=== PATIENT | female | born 1950 | race Caucasian/White ===

== ENCOUNTER → 2019-03-13 | Outpatient (CLI) | payer BC, MEDICARE ==
--- NOTE | 2019-03-13 11:06 | KCIC ---
MRI study of the left knee without contrast Clinical indications: Chronic medial left knee pain and joint effusion. TECHNIQUE: Noncontrast MRI sequences of the left knee were performed in all 3 planes. COMPARISON: None available. FINDINGS: The anterior and posterior cruciate ligaments are intact. The quadriceps and patellar tendons are intact. Prepatellar tendon soft tissue edema is seen. There is mild lateral subluxation of the patella. The trochlear groove to tibial tubercle distance is 12 mm which is normal. There is mild chondromalacia patellae of the lateral patellar facet without articular cartilage defect. The trochlear articular cartilage is unremarkable. Nonthickened medial plica is seen. The medial and lateral retinacular ligaments are intact. There is a small tear of the posterior body of the medial meniscus which extends to the inferior articular surface. There is mild truncation of the inner articular edge of this portion of the medial meniscus. The lateral meniscus is intact. The medial collateral ligament is intact and no meniscocapsular separation is seen. The lateral collateral ligament complex and iliotibial band and popliteus tendon are intact. No posterior lateral corner injury is seen. No bone contusion or fracture or marrow infiltrative process is seen. There is moderate chondromalacia and thinning of the articular cartilage of the medial tibiofemoral joint compartment mainly involving the medial femoral condyle. There is mild degenerative stress reaction bone marrow edema of the medial tibial plateau. Minimal degenerative spurring of this joint compartment is seen. No focal osteochondral abnormality of the lateral tibiofemoral joint compartment is seen. A moderate-sized knee joint effusion is seen. No loose body is evident. No muscle edema is seen. No distended Sesay's cyst is seen. 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 Small tear of the body of the medial meniscus. Moderate-sized knee joint effusion. Prepatellar tendon soft tissue edema. The patellar tendon is intact without significant tendinosis. There is mild lateral subluxation of the patella. This could be related to the moderate-sized knee joint effusion. There is mild chondromalacia patellae of the lateral patellar facet. Nonthickened medial plica is evident. Electronically signed by: Tan Coburn MD (03/13/2019 11:03 AM) [id number]
== END | disposition home or self-care (01) ==
LOC: KCIC MRI 09:15
PROVIDERS: ATTEND Orthopaedic Surgery
DX: S83.012A Lateral subluxation of left patella, initial encounter (principal); S83.222A Peripheral tear of medial meniscus, current injury, left knee, initial encounter; M94.262 Chondromalacia, left knee; M25.462 Effusion, left knee; M67.52 Plica syndrome, left knee; X58.XXXA Exposure to other specified factors, initial encounter; Y93.89 Activity, other specified; Y92.89 Other specified places as the place of occurrence of the external cause; Y99.8 Other external cause status
CPT/HCPCS: 73721